=== PATIENT | female | born 1970 | race Caucasian/White ===

== ENCOUNTER 2023-09-10 10:42 | Day surgery (SDC) | payer OTHER, SELFPAY ==
[2023-09-06 16:09] VITALS: BMI 29.4
--- NOTE | 2023-09-07 09:07 | HO.ANESPROP2 ---
HPI - Anesthesia Eval Consult details Narrative: 53yo F for Colonoscopy PMFSH Past Medical History Medical History (Updated 09/06/23 @ 15:54 by Irene Soliz, RN) Personal history of COVID-19 (~04/25/23) IBS (irritable bowel syndrome) GERD (gastroesophageal reflux disease) Asthma Surgical History Surgical History (Updated 09/06/23 @ 15:53 by Irene Soliz, RN) History of bilateral carpal tunnel release Hx of colonoscopy History of esophagogastroduodenoscopy (EGD) Meds Allergies Allergy/AdvReac Type Severity Reaction Status Date / Time cortisone [CORTISONE] Allergy Unknown HYPER Unverified 04/22/20 14:32 mometasone furoate Allergy Unknown EXACERBATES Unverified 04/22/20 14:32 [From ASMANEX TWISTHALER] ASTHMA promethazine [From PHENERGAN] Allergy Unknown RASH Unverified 04/22/20 14:32 sulfamethoxazole Allergy Unknown RASH Unverified 04/22/20 14:32 [From BACTRIM] trimethoprim [From BACTRIM] Allergy Unknown RASH Unverified 04/22/20 14:32 Home Medications Medication Instructions Recorded Confirmed Last Taken Type budesonide-formoterol HFA 160 2 puff inhalation 09/06/23 Unknown History mcg-4.5 mcg/actuation aerosol inhaler lubiprostone 8 mcg capsule 8 mcg PO BID 09/06/23 09/06/23 Unknown History omeprazole 20 mg capsule,delayed 20 mg PO DAILY 09/06/23 09/06/23 Unknown History release Exam Height,Weight and Vital Signs: Height 5 ft 0.5 in Weight 69.4 kg Assessment and Plan Assessment Anesthesia Assessment: Chart Reviewed
[2023-09-07 10:42] VITALS: BMI 28.6
[2023-09-10 11:32] VITALS: BMI 28.9
[2023-09-10 11:39] VITALS: BP 130/82; PULSE 95; RESP 16; TEMP 37.2; O2SAT 98
[2023-09-10 11:50] VITALS: BP 107/72; PULSE 83
[2023-09-10] MEDS: Lactated Ringers 1,000 ML 100 ML IVCONT (12:00)
--- NOTE | 2023-09-10 12:06 | P.CONAN_ITS ---
[facility] Past Medical History Medical History Arthritis Back pain Personal history of COVID-19 (~04/25/23) IBS (irritable bowel syndrome) GERD (gastroesophageal reflux disease) Asthma Patient : No Surgical History Surgical History History of bilateral carpal tunnel release Hx of colonoscopy History of esophagogastroduodenoscopy (EGD) History of Problems with Anesthesia: No Social History Social History Are you a primary critical care specialist to a significant other at home: No Do you presently have visiting nurse or other home services: No Patient Tobacco Use Status: Never used Tobacco Use of substances other than those prescribed or required for medical reasons: No Have you been hit, kicked, punched, or otherwise hurt by someone within the past year? If so, by whom?: No Are you DNR?: No Advance Directives: No Advance Directives Information Provided: Yes Advance Directives on File: No Recently lost weight without trying: No Nutrition Risks: No Nutritional Risk Meds Allergies Allergy/AdvReac Type Severity Reaction Status Date / Time mometasone furoate Allergy Severe EXACERBATES Verified 09/10/23 11:41 [From ASMANEX TWISTHALER] ASTHMA amoxicillin [From Augmentin] Allergy Intermediate Rash Verified 09/07/23 10:35 clavulanic acid Allergy Intermediate Rash Verified 09/07/23 10:35 [From Augmentin] cortisone [CORTISONE] Allergy Intermediate Itching Verified 09/10/23 11:41 promethazine [From PHENERGAN] Allergy Intermediate Irritable Verified 09/10/23 11:41 sulfamethoxazole Allergy Intermediate RASH Verified 09/10/23 11:41 [From BACTRIM] trimethoprim [From BACTRIM] Allergy Intermediate RASH Verified 09/10/23 11:41 Active Medications: Current Medications Albuterol Sulfate (Albuterol Sulfate (0.083%) 2.5 Mg/3 Ml Vial.Neb) 2.5 mg INHALE ONCE PRN PRN Reason: Shortness of Breath/Wheezing Lactated Ringer's (Lr) 1,000 mls @ 100 mls/hr IVCONT .Q10H LIONEL Last Admin: 09/10/23 12:00 Dose: 100 mls/hr Sodium Biphosphate/Sodium Phosphate (Sodium Phosphate,Stokes-Dibasic 133 Ml Enema) 133 ml OK ONCE PRN PRN Reason: Poor Colonoscopy Prep Results Home Medications Medication Instructions Recorded Confirmed Last Taken Type budesonide-formoterol HFA 160 2 puff inhalation BID 09/06/23 09/07/23 09/10/23 History mcg-4.5 mcg/actuation aerosol inhaler lubiprostone 8 mcg capsule 8 mcg PO BID 09/06/23 09/06/23 Unknown History omeprazole 20 mg capsule,delayed 20 mg PO DAILY 09/06/23 09/06/23 09/10/23 History release Advil 09/07/23 08/31/23 History Vitamin C 09/07/23 Unknown History albuterol sulfate 90 mcg/actuation 2 puff inhalation Q4-6H PRN 09/07/23 09/07/23 09/10/23 11:37 History aerosol inhaler (ProAir HFA) Shortness Of Breath Or Wheezing fexofenadine 180 mg tablet 180 mg PO DAILY 09/07/23 09/07/23 09/10/23 History multivitamin 1 tab PO DAILY 09/07/23 09/07/23 Unknown History Exam Height,Weight and Vital Signs: Height 5 ft 0.5 in Weight 68.152 kg Last Vital Signs Temp 99.0 F 09/10/23 11:39 Pulse 83 09/10/23 11:50 Resp 16 09/10/23 11:39 BP 107/72 09/10/23 11:50 Pulse Ox 98 09/10/23 11:39 O2 Del Method Room Air 09/10/23 11:39 Airway Mallampati Class: II TM Dist: >3cm Neck ROM: Full Heart: RRR Lungs: CTA Assessment and Plan Assessment Anesthesia Assessment: Anesthesia Plan Discussed Final Anesthetic Review History of Problems with Anesthesia: No NPO: Yes Final Preanesthetic Review: Meds/Allgs Chart Reviewed, Consent Obtained/Reviewed and Anes Risks/Benef Reviewed Patient Risk: Low Procedure Risk: Low Anesthetic Plan Anesthetic Plan: MAC: Disposition: Standard PACU
[2023-09-10 13:49] VITALS: BP 111/72; PULSE 95; RESP 16; TEMP 36.3; O2SAT 99
--- NOTE | 2023-09-10 13:55 | PM.OP ---
Brief Operative Note Date of Service: 09/10/23 Pre-op diagnosis: Screening Post-op diagnosis: other (Polyps) Procedure: Colonoscopy to the cecum and TI with bx/removal of polyps Surgeon: Erlin Bell MD Anesthesia: MAC Was an [employer] Waste [employer] Technician used for this Procedure?: No Estimated blood loss (mL): 2.0 Pathology: other (A. Cecal polyp B. Rectal polyp) Condition: stable Disposition: PACU
[2023-09-10 14:04] VITALS: BP 119/74; PULSE 80; RESP 16; TEMP 36.3; O2SAT 98
--- NOTE | 2023-09-10 16:33 | OP_ITS ---
DATE OF SERVICE: 09/10/2023 SURGEON: Erlin Bell MD INDICATIONS: The patient presents for evaluation of colorectal cancer screening, personal history of serrated colon polyps, and family history of colon cancer. Full consent was obtained from her for this, including risks of bleeding and perforation. PREOPERATIVE DIAGNOSIS: POSTOPERATIVE DIAGNOSIS: PROCEDURE PERFORMED: Colonoscopy to the cecum and terminal ileum with biopsy and removal of polyps. ESTIMATED BLOOD LOSS: COMPLICATIONS: ANESTHESIA: Medication used: Monitored anesthesia care. ASSISTANTS: SPECIMENS: PREOPERATIVE DIAGNOSES: Colorectal cancer screening, family history of colon cancer, personal history of serrated colon polyps. POSTOPERATIVE DIAGNOSES: Colorectal cancer screening, family history of colon cancer, personal history of serrated colon polyps, colon polyps, diverticulosis, and internal and external hemorrhoids. DESCRIPTION OF PROCEDURE: The patient was placed in the left lateral decubitus position. The digital rectal exam revealed external hemorrhoidal tissue. The Olympus video pediatric colonoscope was then entered into the rectum and advanced to the cecum with the assistance of abdominal wall pressure. Once in the cecum, I did identify normal-appearing cecal pouch with appendiceal orifice and a normal-appearing ileocecal valve, other than a 3 mm polyp in the cecum, which was biopsied and removed completely with the cold biopsy forceps. There was transillumination of light deep in the right lower quadrant. The terminal ileum was cannulated and appeared normal. Scope was withdrawn back in the colon. The remainder of the cecum appeared normal. The scope was slowly withdrawn, assessing all mucosal surfaces carefully. Preparation was excellent. I did not visualize any sign of colitis or angiodysplasia. There was a mild amount of sigmoid diverticulosis. In the rectum, seen in the retroflexed position, was a 3 mm polyp, which was biopsied and completely removed with the cold biopsy forceps. Remainder of the rectal mucosa appeared normal, both in the forward viewing and retroflexed position. Internal hemorrhoids were noted. The scope was withdrawn from the patient. She tolerated the procedure well and was returned to recovery area in stable condition. IMPRESSION: 1. Colon and rectal polyps, status post biopsy and removal. 2. Diverticulosis. 3. Internal and external hemorrhoids. PLAN: The results of biopsy will be checked. Given her previous history of serrated polyps, family history of colon cancer, and today's findings, I would recommend a repeat colonoscopy in 3 years for further surveillance. She will otherwise see me on a p.r.n. basis. Of note, she will continue Amitiza for chronic constipation and irritable bowel syndrome. Her previous issue with diarrhea has resolved with the addition of some sugar-free Citrucel and I did advise to continue that. Based on that, I did not do any biopsies today to look for microscopic colitis given her improved clinical symptoms. She was advised not to use any aspirin and NSAIDs for 1 more week. This has been discussed with her . MD DOC Hollingsworth/NURIA / [id number]
== END 2023-09-10 14:35 | disposition home or self-care (01) ==
PROVIDERS: PCP Family Medicine; Visit Provider Internal Medicine
PROC: 0DJD8ZZ Inspection of Lower Intestinal Tract, Via Natural or Artificial Opening Endoscopic (ICD-10-PCS; CPT 45378; principal; 2023-09-10 12:30)
DX: Z12.11 Encounter for screening for malignant neoplasm of colon (principal); Z86.010 Personal history of colon polyps; Z80.0 Family history of malignant neoplasm of digestive organs; D12.0 Benign neoplasm of cecum; K62.1 Rectal polyp; K57.30 Diverticulosis of large intestine without perforation or abscess without bleeding; K64.8 Other hemorrhoids; K64.4 Residual hemorrhoidal skin tags; K58.1 Irritable bowel syndrome with constipation; K21.9 Gastro-esophageal reflux disease without esophagitis; J45.909 Unspecified asthma, uncomplicated; Z79.1 Long term (current) use of non-steroidal anti-inflammatories (NSAID); Z79.51 Long term (current) use of inhaled steroids; Z79.899 Other long term (current) drug therapy; Z86.16 Personal history of COVID-19
CPT/HCPCS: 45380; 88305; J2704